=== PATIENT | female | born 1975 | race Caucasian/White ===

== ENCOUNTER 2018-04-08 11:59 | Day surgery (SDC) | payer BC ==
[~2018-04-08] VITALS: Ht 165.1 cm; Wt 107.5 kg
[~2018-04-08 11:59] MED LIST: CYTOMEL50 MCG PO; ERGOCALCIF50000 UNIT PO; ESTRACE1 MG PO; HUMIRA40 MG/0.1 SC; LEVOTHYROXINE100 MCG PO; SYNTHROID50 MCG PO; VITAMIN D35000 UNIT PO
[2018-04-08 12:24] VITALS: BP 136/75
[2018-04-08] MEDS ORDERED: HYDROCODON-ACE1 EAC7 PO (14:50)
[2018-04-08 16:15] VITALS: BP 125/79
[2018-04-08 17:11] VITALS: BP 118/77
== END 2018-04-08 17:15 | disposition home or self-care (01) ==
LOC: SDC 11:59
PROC: 0HBT0ZX Excision of Right Breast, Open Approach, Diagnostic (ICD-10-PCS; principal; 2018-04-08)
DX: D24.1 Benign neoplasm of right breast (principal); Z79.890 Hormone replacement therapy; Z90.710 Acquired absence of both cervix and uterus; Z80.3 Family history of malignant neoplasm of breast; E78.5 Hyperlipidemia, unspecified; E03.9 Hypothyroidism, unspecified; Z79.899 Other long term (current) drug therapy; F17.200 Nicotine dependence, unspecified, uncomplicated; Z80.0 Family history of malignant neoplasm of digestive organs; Z80.41 Family history of malignant neoplasm of ovary; Z80.8 Family history of malignant neoplasm of other organs or systems; Z88.1 Allergy status to other antibiotic agents; Z91.030 Bee allergy status; Z91.012 Allergy to eggs
CPT/HCPCS: 88307; 88341 TC; 88342 TC; J0131; J1100; J1170; J2250; J2405; J3010; S0020